=== PATIENT | male | born 1980 | race Caucasian/White ===

== ENCOUNTER 2017-03-08 13:13 | Emergency (ER) | payer MEDICAID ==
[2017-03-08] MEDS ORDERED: PANTOPRAZOLE 40 MG/10 ML VIAL IVP STA (13:32)
[2017-03-08] MEDS ORDERED: SODIUM CHLORIDE 0.9% 1,000 ML IV STA (13:32)
--- NOTE | 2017-03-08 13:36 | ED ---
General Adult HPI - General Chief complaint: GI Bleed Stated complaint: Vomiting Time Seen by Provider: 03/08/17 13:21 Source: patient, RN notes reviewed Mode of arrival: ambulatory Limitations: no limitations - History of Present Illness Initial comments: Patient is a pleasant 36-year-old male presenting to the emergency department following an episode of vomiting. Patient states it was dark brown/coffee- ground appearance. Patient had similar symptoms once previously associated with GI hemorrhage. Patient states he feels near normal at this point. Patient states he did do some yard work and felt only slightly lightheaded during this. No abdominal pain. Patient admits to not taking his omeprazole regularly. Patient states he did have pizza last night and that seemed to cause a lot of heartburn. Patient does have a history of bad heartburn. - Related Data Home Medications Medication Instructions Recorded Confirmed Omeprazole [PriLOSEC] 20 mg PO DAILY 06/04/14 03/08/17 Aspirin 325 mg PO DAILY PRN 03/08/17 03/08/17 Sucralfate [Carafate] 1 gm PO ONCE 03/08/17 03/08/17 Allergies Allergy/AdvReac Type Severity Reaction Status Date / Time shellfish derived Allergy Itching Verified 03/08/17 13:49 Review of Systems ROS Statement: Those systems with pertinent positive or pertinent negative responses have been documented in the HPI. ROS Other: All systems not noted in ROS Statement are negative. Constitutional: Denies: fever Eyes: Denies: eye pain ENT: Denies: ear pain Respiratory: Denies: cough Cardiovascular: Denies: chest pain Endocrine: Denies: fatigue Gastrointestinal: Reports: vomiting Genitourinary: Denies: dysuria Musculoskeletal: Denies: back pain Skin: Denies: rash Neurological: Denies: headache Past Medical History Additional Past Medical History / Comment(s): CONSTIPATION, HX OF HEART MURMUR, HX OF UPPER GI BLEED, History of Any Multi-Drug Resistant Organisms: None Reported Additional Past Surgical History / Comment(s): EGD Past Anesthesia/Blood Transfusion Reactions: No Reported Reaction Past Psychological History: No Psychological Hx Reported Smoking Status: Never smoker Past Alcohol Use History: Daily Past Drug Use History: None Reported General Exam Limitations: no limitations General appearance: alert, in no apparent distress Head exam: Present: atraumatic Eye exam: Present: normal appearance, PERRL ENT exam: Present: normal oropharynx Neck exam: Present: normal inspection Respiratory exam: Present: normal lung sounds bilaterally Cardiovascular Exam: Present: regular rate, normal rhythm GI/Abdominal exam: Present: soft. Absent: distended, tenderness, guarding, rebound, rigid, pulsatile mass Extremities exam: Present: normal inspection. Absent: pedal edema, calf tenderness Neurological exam: Present: alert Psychiatric exam: Present: normal affect, normal mood Skin exam: Present: normal color Course Vital Signs 03/08/17 03/08/17 13:15 14:22 Temperature 98.2 F 98.6 F Pulse Rate 103 H 96 Respiratory 16 18 Rate Blood Pressure 131/87 135/82 O2 Sat by Pulse 97 98 Oximetry Medical Decision Making - Medical Decision Making Patient reexamined and resting comfortably in bed. Patient symptom-free. Patient requests discharge home. Patient updated on results. Case discussed with Dr. Salomon who will follow with the patient in the next day or 2. - Lab Data Result diagrams: 03/08/17 13:30 03/08/17 13:30 Lab Results 03/08/17 03/08/17 03/08/17 Range/Units 13:30 13:30 13:30 WBC 7.6 (3.8-10.6) k/uL RBC 4.75 (4.30-5.90) m/uL Hgb 14.6 (13.0-17.5) gm/dL Hct 41.2 (39.0-53.0) % MCV 86.8 (80.0-100.0) fL MCH 30.8 (25.0-35.0) pg MCHC 35.5 (31.0-37.0) g/dL RDW 12.2 (11.5-15.5) % Plt Count 297 (150-450) k/uL Neutrophils % 66 % Lymphocytes % 23 % Monocytes % 6 % Eosinophils % 2 % Basophils % 1 % Neutrophils # 5.0 (1.3-7.7) k/uL Lymphocytes # 1.7 (1.0-4.8) k/uL Monocytes # 0.4 (0-1.0) k/uL Eosinophils # 0.1 (0-0.7) k/uL Basophils # 0.0 (0-0.2) k/uL PT 11.0 (9.0-12.0) sec INR 1.1 (<1.2) APTT 24.4 (22.0-30.0) sec Sodium 140 (137-145) mmol/L Potassium 4.2 (3.5-5.1) mmol/L Chloride 105 (98-107) mmol/L Carbon Dioxide 23 (22-30) mmol/L Anion Gap 12 mmol/L BUN 12 (9-20) mg/dL Creatinine 1.00 (0.66-1.25) mg/dL Est GFR (MDRD) Af Amer >60 (>60 ml/min/1.73 sqM) Est GFR (MDRD) Non-Af >60 (>60 ml/min/1.73 sqM) Glucose 95 (74-99) mg/dL Calcium 10.1 (8.4-10.2) mg/dL Total Bilirubin 0.5 (0.2-1.3) mg/dL AST 83 H (17-59) U/L ALT 109 H (21-72) U/L Alkaline Phosphatase 111 (38-126) U/L Total Protein 8.3 H (6.3-8.2) g/dL Albumin 5.0 (3.5-5.0) g/dL Amylase 55 (30-110) U/L Lipase 43 (23-300) U/L Disposition Clinical Impression: Emesis Disposition: HOME SELF-CARE Condition: Stable Instructions: Gastrointestinal Bleeding (ED) Additional Instructions: Please take your omeprazole as directed. Please follow-up with Dr. Salomon tomorrow. Return for vomiting, especially if blood is involved, weakness, abdominal pain, black stools, worsening symptoms or other concerns. Please have your liver enzymes rechecked. Referrals: Jose Eldridge Jr, [Primary Care Provider] - 1-2 days Time of Disposition: 15:17
[2017-03-08 13:47] LABS: Basophils % (A) 1 %; CH 29.9; CHCM 34.6; Eosinophils # (A) 0.1 k/uL (0-0.7); Eosinophils % (A) 2 %; HCT 41.2 % (39.0-53.0); HDW 2.55; HGB 14.6 gm/dL (13.0-17.5); Luc # (Auto) 0.27; Luc % (Auto) 4; Lymphocytes # (A) 1.7 k/uL (1.0-4.8); Lymphocytes % (A) 23 %; MCH 30.8 pg (25.0-35.0); MCHC 35.5 g/dL (31.0-37.0); MCV 86.8 fL (80.0-100.0); Mean Platelet Volume 6.8; Monocytes # (A) 0.4 k/uL (0-1.0); Monocytes % (A) 6 %; Neutrophils % (A) 66 %; RBC 4.75 m/uL (4.30-5.90); RDW 12.2 % (11.5-15.5); WBC 7.6 k/uL (3.8-10.6); WBC (Perox) 7.74
[2017-03-08 13:56] LABS: INR 1.1 (<1.2); Partial Thromboplastin Time 24.4 sec (22.0-30.0)
[2017-03-08 14:03] LABS: ALT 109 U/L (21-72); AST 83 U/L (17-59); Alkaline Phosphatase 111 U/L (38-126); Amylase 55 U/L (30-110); Anion Gap 12 mmol/L; Blood Urea Nitrogen 12 mg/dL (9-20); Calcium 10.1 mg/dL (8.4-10.2); Carbon Dioxide 23 mmol/L (22-30); Chloride 105 mmol/L (98-107); Glucose 95 mg/dL (74-99); Non-African American GFR(MDRD) >60 (>60 ml/min/1.73 sqM); Potassium 4.2 mmol/L (3.5-5.1); Sodium 140 mmol/L (137-145); Total Bilirubin 0.5 mg/dL (0.2-1.3); Total Protein 8.3 g/dL (6.3-8.2)
[2017-03-08 14:23] VITALS: RESP 18
[2017-03-08 15:27] VITALS: BP 114/70; PULSE 98; TEMP 98.7
== END 2017-03-08 15:28 | disposition home or self-care (01) ==
LOC: EC 13:13
DX: R11.10 Vomiting, unspecified (principal); Z79.899 Other long term (current) drug therapy
CPT/HCPCS: 99284; 96374; 96361 ×2; 36415; 80053; 82150; 83690; 85025; 85610; 85730; C9113

== ENCOUNTER 2018-02-12 13:10 | Emergency (ER) | payer MEDICAID ==
[2018-02-12 13:20] VITALS: BP 132/79; PULSE 78; RESP 18; TEMP 98.2
--- NOTE | 2018-02-12 13:46 | ED ---
Lower Extremity Injury HPI - General Chief Complaint: Extremity Injury, Lower Stated Complaint: stepped on nail Time Seen by Provider: 02/12/18 13:31 Source: patient, RN notes reviewed, old records reviewed Mode of arrival: ambulatory Limitations: no limitations - History of Present Illness Initial Comments: this Patient is a 37-year-old male present emergency department today with injury to the sole of his right foot. Patient perceives walking through wasn't believes he stepped on a nail. Patient states that he has not sure if it was a nail or some other piece of metal. Patient states that it went through his shoe and foot. Patient states that he's having pain with walking on it today. He reports that he has noticed some increased swelling to the dorsum aspect of the foot. No ALLERGIES to medication. - Related Data Home Medications Medication Instructions Recorded Confirmed Omeprazole [PriLOSEC] 20 mg PO DAILY 06/04/14 02/12/18 Previous Rx's Medication Instructions Recorded Ciprofloxacin HCl [Cipro] 500 mg PO Q12HR 10 Days tab 02/12/18 Allergies Allergy/AdvReac Type Severity Reaction Status Date / Time shellfish derived Allergy Itching Verified 02/12/18 13:20 Review of Systems ROS Statement: Those systems with pertinent positive or pertinent negative responses have been documented in the HPI. ROS Other: All systems not noted in ROS Statement are negative. Past Medical History Additional Past Medical History / Comment(s): CONSTIPATION, HX OF HEART MURMUR, HX OF UPPER GI BLEED, History of Any Multi-Drug Resistant Organisms: None Reported Additional Past Surgical History / Comment(s): EGD Past Anesthesia/Blood Transfusion Reactions: No Reported Reaction Past Psychological History: No Psychological Hx Reported Smoking Status: Never smoker Past Alcohol Use History: Daily Past Drug Use History: None Reported General Exam - General Exam Comments Initial Comments: this is a 37-year-old male. Alert and oriented. No acute distress. Limitations: no limitations General appearance: alert, in no apparent distress Head exam: Present: atraumatic, normocephalic, normal inspection Eye exam: Present: normal appearance, PERRL, EOMI. Absent: scleral icterus, conjunctival injection, periorbital swelling ENT exam: Present: normal exam, mucous membranes moist Neck exam: Present: normal inspection. Absent: tenderness, meningismus, lymphadenopathy Respiratory exam: Present: normal lung sounds bilaterally. Absent: respiratory distress, wheezes, rales, rhonchi, stridor Cardiovascular Exam: Present: regular rate, normal rhythm, normal heart sounds. Absent: systolic murmur, diastolic murmur, rubs, gallop, clicks GI/Abdominal exam: Present: soft, normal bowel sounds. Absent: distended, tenderness, guarding, rebound, rigid Extremities exam: Present: normal inspection, other (Patient has evidence of this less than 1 cm puncture wound over the dorsal aspect of his right midfoot. No surrounding erythema. There is some swelling noted to the muscle.) Back exam: Present: normal inspection Neurological exam: Present: alert, oriented X3, CN II-XII intact Psychiatric exam: Present: normal affect, normal mood Skin exam: Present: warm, dry, intact, normal color. Absent: rash Course Vital Signs 02/12/18 13:18 Temperature 98.2 F Pulse Rate 78 Respiratory 18 Rate Blood Pressure 132/79 O2 Sat by Pulse 99 Oximetry Medical Decision Making - Medical Decision Making 37-year-old male presents emergency department today with puncture wound to the right foot. He thinks that he stepped on a nail. He is given updated tetanus. Patient at this time will be started on ciprofloxacin antibiotic. Discussed frequent Epsom salts soaks. Patient advised to return if there is any worsening swelling or any drainage. Patient understands to plan will comply. Return parameters were discussed. - Radiology Data Radiology results: report reviewed No acute osseous lesions noted. No acute osseous lesions. Disposition Clinical Impression: Puncture wound of foot, right Disposition: HOME SELF-CARE Condition: Good Instructions: Puncture Wound (ED) Additional Instructions: Patient advised to take the antibiotic as prescribed. Do multiple Epsom salts soaks of the fluid within the next few days. Patient should return to the emergency department if any alarming signs or symptoms occur. Prescriptions: Ciprofloxacin HCl [Cipro] 500 mg PO Q12HR 10 Days tab Is patient prescribed a controlled substance at d/c from ED?: No Referrals: Jose Eldridge Jr, DO [Primary Care Provider] - 1-2 days Time of Disposition: 14:15
--- NOTE | 2018-02-12 14:13 | XR ---
EXAMINATION TYPE: XR foot complete RT , 3 VIEWS DATE OF EXAM ORDERED: 02/12/2018 HISTORY: Pain. COMPARISON: None. FINDINGS: No fracture, dislocation or radiopaque foreign body is seen. IMPRESSION: NO ACUTE OSSEOUS LESION.
[2018-02-12] MEDS ORDERED: DIPH,PERTUS(ACELL)TETVAC-LF 0.5 ML VIAL IM ONE (14:14)
== END 2018-02-12 14:55 | disposition home or self-care (01) ==
LOC: EC 13:10
DX: S91.331A Puncture wound without foreign body, right foot, initial encounter (principal); Z91.013 Allergy to seafood; Z79.899 Other long term (current) drug therapy; Z87.19 Personal history of other diseases of the digestive system; Z23 Encounter for immunization; W45.0XXA Nail entering through skin, initial encounter; Y93.01 Activity, walking, marching and hiking
CPT/HCPCS: 90471; 90715; 99284

== ENCOUNTER 2021-05-28 19:54 | Emergency (ER) | payer MEDICAID, OTHER ==
[2021-05-28 20:02] VITALS: PULSE 88; RESP 20
[2021-05-28] MEDS ORDERED: BAMLANIVIMAB (EUA) 700 MG, ETESEVIMAB (EUA) 1,400 MG in SODIUM CHLORIDE 0.9% 50 ML IVPB ONE (20:45)
[2021-05-28] MEDS ORDERED: SODIUM CHLORIDE 0.9% 50 ML IVPB ONE (20:45)
--- NOTE | 2021-05-28 20:54 | ED ---
Recheck HPI - General Chief Complaint: Recheck/Abnormal Lab/Rx Stated Complaint: COVID TEST Time Seen by Provider: 05/28/21 19:56 Source: patient, RN notes reviewed Mode of arrival: ambulatory Limitations: no limitations - History of Present Illness Initial Comments: Patient is a 40-year-old male that presents to the emergency department with who is Covid-positive and 26 weeks . Patient notes that he is unvaccinated and is exposed to Covid. Patient states he is waiting for a rapid test and would like to get monoclonal antibodies if he is positive. Patient denied any symptoms. He was otherwise well-appearing. He denied chest pain shortness of breath headache nausea vomiting diarrhea constipation fever fatigue chills. - Related Data Home Medications Medication Instructions Recorded Confirmed Omeprazole [PriLOSEC] 20 mg PO DAILY 06/04/14 02/12/18 Previous Rx's Medication Instructions Recorded Ciprofloxacin HCl [Cipro] 500 mg PO Q12HR 10 Days tab 02/12/18 Allergies Allergy/AdvReac Type Severity Reaction Status Date / Time shellfish derived Allergy Itching Verified 05/28/21 19:56 Review of Systems ROS Statement: Those systems with pertinent positive or pertinent negative responses have been documented in the HPI. ROS Other: All systems not noted in ROS Statement are negative. Past Medical History Additional Past Medical History / Comment(s): CONSTIPATION, HX OF HEART MURMUR, HX OF UPPER GI BLEED, History of Any Multi-Drug Resistant Organisms: None Reported Additional Past Surgical History / Comment(s): EGD Past Anesthesia/Blood Transfusion Reactions: No Reported Reaction Past Psychological History: No Psychological Hx Reported Smoking Status: Never smoker Past Alcohol Use History: Daily Past Drug Use History: None Reported General Exam Limitations: no limitations General appearance: alert, in no apparent distress, obese Head exam: Present: atraumatic, normocephalic, normal inspection Eye exam: Present: normal appearance, PERRL, EOMI. Absent: scleral icterus, conjunctival injection, periorbital swelling ENT exam: Present: normal exam, mucous membranes moist Neck exam: Present: normal inspection. Absent: tenderness, meningismus, lymphadenopathy Respiratory exam: Present: normal lung sounds bilaterally. Absent: respiratory distress, wheezes, rales, rhonchi, stridor Cardiovascular Exam: Present: regular rate, normal rhythm, normal heart sounds. Absent: systolic murmur, diastolic murmur, rubs, gallop, clicks Extremities exam: Present: normal inspection, full ROM, normal capillary refill. Absent: tenderness, pedal edema, joint swelling, calf tenderness Neurological exam: Present: alert, oriented X3 Psychiatric exam: Present: normal affect, normal mood Skin exam: Present: warm, dry, intact, normal color. Absent: rash Course Vital Signs 05/28/21 19:56 Temperature 98.4 F Pulse Rate 88 Respiratory 20 Rate Blood Pressure 151/92 O2 Sat by Pulse 98 Oximetry Medical Decision Making - Medical Decision Making 40-year-old male exposed to Covid, unvaccinated. Patient does meet criteria for monoclonal antibody infusion. He does wish to undergo infusion. Patient is agreeable with discharge home after infusion. Case discussed with Dr. Ansari, patient discharge home. Disposition Clinical Impression: COVID Disposition: HOME SELF-CARE Condition: Stable Instructions (If sedation given, give patient instructions): Coronavirus Disease 2019 (COVID-19) Additional Instructions: Please return to the Emergency Department if symptoms worsen or any other concerns. Is patient prescribed a controlled substance at d/c from ED?: No Referrals: Jose Eldridge Jr, DO [Primary Care Provider] - 1-2 days Time of Disposition: 20:54
[2021-05-28 22:30] VITALS: BP 144/87; TEMP 97.6
== END 2021-05-28 22:29 | disposition home or self-care (01) ==
LOC: EC 19:54
DX: U07.1 COVID-19 (principal)
CPT/HCPCS: 99282; 96365; J3490

== ENCOUNTER → 2021-05-28 | Outpatient (CLI) | payer MEDICAID, OTHER | END | disposition home or self-care (01) | LOC: LABWHC1 16:08 | PROVIDERS: ATTEND Emergency Medicine | DX: Z20.822 Contact with and (suspected) exposure to COVID-19 (principal) | CPT/HCPCS: 87635 ==

== ENCOUNTER → 2021-05-29 | Outpatient (CLI) | payer MEDICAID, OTHER | END | disposition home or self-care (01) | LOC: LABMAIN 13:47 | PROVIDERS: ATTEND Emergency Medicine | DX: U07.1 COVID-19 (principal) | CPT/HCPCS: 87635 ==

== ENCOUNTER 2022-04-08 09:18 | Emergency (ER) | payer MEDICAID, OTHER ==
[2022-04-08 09:27] VITALS: TEMP 98
[2022-04-08] MEDS ORDERED: ASPIRIN 81 MG PO STA (09:32)
[2022-04-08 10:12] LABS: Basophils % (A) 0 %; Eosinophils # (A) 0.2 k/uL (0-0.7); Eosinophils % (A) 3 %; HCT 40.6 % (39.0-53.0); HGB 13.6 gm/dL (13.0-17.5); Lymphocytes # (A) 2.1 k/uL (1.0-4.8); Lymphocytes % (A) 36 %; MCH 29.8 pg (25.0-35.0); MCHC 33.5 g/dL (31.0-37.0); Monocytes # (A) 0.3 k/uL (0-1.0); Monocytes % (A) 6 %; Neutrophils # (A) 3.1 k/uL (1.3-7.7); Neutrophils % (A) 54 %; Platelet Count 268 k/uL (150-450); RBC 4.56 m/uL (4.30-5.90); RDW 12.1 % (11.5-15.5); WBC 5.8 k/uL (3.8-10.6)
[2022-04-08 10:27] LABS: ALT 60 U/L (4-49); AST 65 U/L (17-59); African American GFR (CKD) >90 (>60 ml/min/1.73 sqM); Albumin 4.6 g/dL (3.5-5.0); Alkaline Phosphatase 87 U/L (38-126); Anion Gap 12 mmol/L; Blood Urea Nitrogen 14 mg/dL (9-20); Calcium 9.7 mg/dL (8.4-10.2); Carbon Dioxide 26 mmol/L (22-30); Chloride 102 mmol/L (98-107); Glucose 97 mg/dL (74-99); Lipase 50 U/L (23-300); Non-African American GFR(CKD) 88 (>60 ml/min/1.73 sqM); Potassium 4.1 mmol/L (3.5-5.1); Sodium 140 mmol/L (137-145); Total Bilirubin 0.4 mg/dL (0.2-1.3); Total Protein 7.6 g/dL (6.3-8.2)
[2022-04-08 10:30] LABS: Partial Thromboplastin Time 25.5 sec (22.0-30.0); Prothrombin Time 10.8 sec (9.0-12.0)
--- NOTE | 2022-04-08 10:41 | XR ---
EXAMINATION TYPE: XR chest 2V DATE OF EXAM: 04/08/2022 COMPARISON: None INDICATION: Chest pain TECHNIQUE: Frontal and lateral views of the chest are obtained. FINDINGS: The heart size is normal. The pulmonary vasculature is normal. The lungs are clear. IMPRESSION: 1. No acute pulmonary process.
[2022-04-08 12:47] VITALS: RESP 16
--- NOTE | 2022-04-08 12:50 | CT ---
EXAMINATION TYPE: CT angio thor/abd pel aorta DATE OF EXAM: 04/08/2022 INDICATION: Chest pains COMPARISON: None CT DLP: 1347.8 mGycm CONTRAST: Performed without Oral Contrast and without and with IV Contrast, patient injected with 100 mL of Iso vipul 370. TECHNIQUE: Axial images at 5 mm thick sections. Reconstructed images in the coronal plane. Delayed images through the kidneys. FINDINGS: Aorta: No aneurysmal dilatation is evident. No dissection is evident. Aorta to the iliac ve ssels are patent to the superficial femoral arteries. CT CHEST: Portion of the thyroid visualized is normal. No suspicious lung nodules or focal infiltrates are present. No enlarged mediastinal or hilar adenopathy is evident. The ascending aorta diameter at the level of the main pulmonary artery is 2.9 cm. The main pulmonary artery diameter at the bifurcation is 2.[address] ABDOMEN: There is a small to moderate size hiatal hernia present. Liver: Normal Spleen: Normal Pancreas: Normal Adrenal glands: The adrenal glands are normal. Gallbladder: Normal Kidneys: No masses are evident. No hydronephrosis is present. No cysts are present. Delayed images were obtained through the kidneys, which remain unremarkable. Aorta: Normal aortic branches including celiac and superior mesenteric renal arteries and inferior me senteric artery appear normal. Inferior vena cava: Normal. CT PELVIS: Loops of bowel within the abdomen and pelvis are normal. This study is performed without oral con trast limiting bowel evaluation. Appendix: Normal as visualized. Urinary bladder: Normal. Genitourinary structures: Prostate is normal. Osseous structures: No suspicious lytic or sclerotic lesions. IMPRESSIONS: 1. Normal abdominal aorta. No dissection or aneurysm is evident. 2. Small to moderate hiatal hernia.
--- NOTE | 2022-04-08 13:21 | ED ---
Chest Pain HPI - General Chief Complaint: Chest Pain Stated Complaint: chest pain Time Seen by Provider: 04/08/22 09:32 Source: patient, RN notes reviewed Mode of arrival: ambulatory Limitations: no limitations - History of Present Illness Initial Comments: 41-year-old male present emergency department with chief complaint of chest discomfort. Patient states been having episodic pain. Patient very quick central pain that passes without anything. Patient states his been present for several days. Patient states that he does have quadrant reflux. Denies any significant cardiac history has had stress tests in the past which was within normal limits. Patient denies any nausea vomiting or shortness breath no leg pain no history DVT or PE. Eyes hypertension, hyperlipidemia. - Related Data Home Medications Medication Instructions Recorded Confirmed Omeprazole [PriLOSEC] 20 mg PO AC-SUPPER PRN 06/04/14 04/08/22 Famotidine [Zantac-360 20 mg PO AC-SUPPER PRN 04/08/22 04/08/22 (Famotidine)] Allergies Allergy/AdvReac Type Severity Reaction Status Date / Time shellfish derived Allergy Itching Verified 04/08/22 10:42 Review of Systems ROS Statement: Those systems with pertinent positive or pertinent negative responses have been documented in the HPI. ROS Other: All systems not noted in ROS Statement are negative. Past Medical History Past Medical History: GERD/Reflux Additional Past Medical History / Comment(s): HX OF HEART MURMUR, HX OF UPPER GI BLEED, History of Any Multi-Drug Resistant Organisms: None Reported Additional Past Surgical History / Comment(s): EGD Past Anesthesia/Blood Transfusion Reactions: No Reported Reaction Past Psychological History: No Psychological Hx Reported Smoking Status: Never smoker Past Alcohol Use History: Occasional Past Drug Use History: None Reported General Exam Limitations: no limitations General appearance: alert, in no apparent distress Head exam: Present: atraumatic, normocephalic, normal inspection Eye exam: Present: normal appearance, PERRL, EOMI. Absent: scleral icterus, conjunctival injection, periorbital swelling ENT exam: Present: normal exam, mucous membranes moist Neck exam: Present: normal inspection, full ROM. Absent: tenderness, meningismus, lymphadenopathy Respiratory exam: Present: normal lung sounds bilaterally. Absent: respiratory distress, wheezes, rales, rhonchi, stridor Cardiovascular Exam: Present: regular rate, normal rhythm, normal heart sounds. Absent: systolic murmur, diastolic murmur, rubs, gallop, clicks GI/Abdominal exam: Present: soft, normal bowel sounds. Absent: distended, tenderness, guarding, rebound, rigid Extremities exam: Absent: calf tenderness Neurological exam: Present: alert, oriented X3, CN II-XII intact Course Vital Signs 04/08/22 04/08/22 04/08/22 09:25 10:28 12:46 Temperature 98 F Pulse Rate 85 79 82 Respiratory 16 17 16 Rate Blood Pressure 143/75 137/87 129/91 O2 Sat by Pulse 98 98 97 Oximetry Chest Pain MDM - MDM 41-year-old present for 8). Patient had full workup including labs, EKG, chest x-ray, CT rule out aneurysm. Patient has no acute findings. I did offer admission for further Evaluation he states he is asymptomatic he will return for any worsening change in symptoms. Disposition Clinical Impression: Atypical chest pain Disposition: HOME SELF-CARE Condition: Stable Instructions (If sedation given, give patient instructions): Chest Pain (ED) Additional Instructions: Please return to the Emergency Department if symptoms worsen or any other concerns. Is patient prescribed a controlled substance at d/c from ED?: No Referrals: Jose Eldridge Jr, DO [Primary Care Provider] - 1-2 days Time of Disposition: 13:21
[2022-04-08 14:07] VITALS: BP 136/74; PULSE 75
== END 2022-04-08 14:07 | disposition home or self-care (01) ==
LOC: EC 09:18
DX: R07.89 Other chest pain (principal); K21.9 Gastro-esophageal reflux disease without esophagitis; Z91.013 Allergy to seafood; Z79.899 Other long term (current) drug therapy
CPT/HCPCS: 36415; 93005; 85379; 80053; 83690; 83735; 84484; 85025; 85610; 85730; 71046; 71275; 74174; 99285; Q9967

== ENCOUNTER → 2022-05-19 | Outpatient (CLI) | payer MEDICAID | END | disposition home or self-care (01) | LOC: LABWHC1 16:05 | PROVIDERS: ATTEND Internal Medicine Gastroenterology | DX: K21.9 Gastro-esophageal reflux disease without esophagitis (principal); R07.89 Other chest pain; R05.9 Cough, unspecified | CPT/HCPCS: 87635 ==